=== PATIENT | female | born 1970 ===

== ENCOUNTER 2019-10-19 09:27 | Day surgery (SDC) | payer BC ==
[~2019-10-19 09:27] MED LIST: Lactated Ringers 1,000 ML IV SCH; Lidocaine 2% 5 ML SDV ONE; Midazolam 1 MG/ML 2 ML SDV ONE; Propofol 200 MG/20 ML SDV ONE; Sodium Chloride 0.9% 10 ML SDV IV PRN; Sodium Chloride 0.9% 10 ML Syringe FLUSH PRN; Sodium Chloride 0.9% 2.5 ML Syringe FLUSH PRN; fentaNYL 100 MCG/2 ML SDV ONE
--- NOTE | 2019-10-19 10:23 | PCM.PREANE ---
Preanesthetic Assessment - Anesthesia/Transfusion/Family Hx Anesthesia History: Prior Anesthesia Reaction Type of Anesthesia Reaction: Excessive Nausea/Vomiting Other Type of Anesthesia Reaction Comment: Sick and Dizzy everytime, only time did not pre-treated dramamine/Zantac Transfusion History: No Prior Transfusion(s) - Review of Systems General: No Symptoms Pulmonary: No Symptoms Cardiovascular: No Symptoms Neurological: No Symptoms Other: Reports: None - Physical Assessment NPO Status Date: 10/18/19 Vital Signs: Last Vital Signs Temp 98.6 F 10/19/19 10:07 Pulse 72 10/19/19 10:07 Resp 16 10/19/19 10:07 BP 138/78 10/19/19 10:07 Pulse Ox 97 10/19/19 10:07 Height: 5 ft 10 in Weight: 81.647 kg ASA Class: 2 Dentition: Reports: Normal Dentition (veneers all maxillary teeth) ROM/Head Extension: Full Lungs: Clear to Auscultation, Normal Respiratory Effort Cardiovascular: Regular Rate, Regular Rhythm - Allergies Allergies/Adverse Reactions: Allergies Allergy/AdvReac Type Severity Reaction Status Date / Time codeine Allergy Hyperactivi Verified 10/16/19 11:18 ty latex Allergy Difficulty Verified 10/16/19 11:18 Breathing oxycodone Allergy Nausea and Verified 10/16/19 11:18 Vomiting Penicillins Allergy Cannot Verified 10/16/19 11:18 Remember pineapple Allergy Rash Verified 10/16/19 11:18 povidone-iodine Allergy Swelling Verified 10/16/19 11:18 [From Betadine] soap [From Betadine] Allergy Swelling Verified 10/16/19 11:18 Sulfa (Sulfonamide Allergy Difficulty Verified 10/16/19 11:18 Antibiotics) Breathing tramadol Allergy Vomiting Verified 10/16/19 11:18 Seasonal Allergy Mild Other Uncoded 07/10/18 07:26 - Blood Blood Available: No - Anesthesia Plan Pre-Op Medication Ordered: None - Acknowledgements Anesthesia Type Planned: General Anesthesia Pt an Appropriate Candidate for the Planned Anesthesia: Yes Alternatives and Risks of Anesthesia Discussed w Pt/Guardian: Yes Pt/Guardian Understands and Agrees with Anesthesia Plan: Yes Additional Comments: pmh: gerd, thyroid replacement (asthma is inactive, states pos hep Bwas false positive) PLAN: tiva PreAnesthesia Questionnaire HEENT History: Reports: Other (See Below) Other HEENT History: wears glasses Cardiovascular History: Reports: Other (See Below) Other Cardiovascular History: When younger told "I had a heart murmur" Respiratory History: Reports: Other (See Below) Other Respiratory History: asthma as a child Gastrointestinal History: Reports: None Other Gastrointestinal History: Rare Heartburn Genitourinary History: Reports: None SOLE BUFFER History: Reports: Musculoskeletal History: Reports: Arthritis, Fracture Other Musculoskeletal History: hx: fracturing a finger, arthritis to knees Neurological History: Reports: None Other Neuro History: hx of motion sickness Psychiatric History: Reports: None Endocrine/Metabolic History: Reports: Hypothyroidism Other Endocrine/Metabolic History: hx: THyroidectomy for Cancer Hematologic History: Reports: None Immunologic History: Reports: None Oncologic (Cancer) History: Reports: Thyroid Dermatologic History: Reports: None - Infectious Disease History Infectious Disease History: Reports: Chicken Pox - Past Surgical History HEENT Surgical History: Reports: Myringotomy w Tube(s), Tonsillectomy Other HEENT Surgeries/Procedures: reconstructive ear surgery Female Surgical History: Reports: Endometrial Ablation, Tubal Ligation - SUBSTANCE USE Smoking Status *Q: Never Smoker Recreational Drug Use History: No - HOME MEDS Home Medications: Home Meds Fluticasone Propionate [Flonase] 1 - 2 sprays INH DAILY 12/18/14 [History] Levothyroxine Sodium 125 mg PO DAILY 12/18/14 [History] Loratadine [Claritin] 10 mg PO DAILY PRN 08/13/16 [History] Multivitamin 1 tab PO DAILY 10/16/19 [History] estradioL [Estradiol] 1 mg PO DAILY 10/16/19 [History] - CURRENT (IN HOUSE) MEDS Current Meds: Current Medications Lactated Ringer's (Ringers, Lactated) 1,000 mls @ 125 mls/hr IV ASDIRECTED MELINDA Sodium Chloride (Saline Flush) 10 ml FLUSH ASDIRECTED PRN PRN Reason: Keep Vein Open Sodium Chloride (Saline Flush) 2.5 ml FLUSH ASDIRECTED PRN PRN Reason: Keep Vein Open Sodium Chloride (Saline Flush) 10 ml FLUSH ASDIRECTED PRN PRN Reason: Keep Vein Open Sodium Chloride (Saline Flush) 2.5 ml FLUSH ASDIRECTED PRN PRN Reason: Keep Vein Open Sodium Chloride (Normal Saline) 10 ml IV ASDIRECTED PRN PRN Reason: IV Use Discontinued Medications Fentanyl (Sublimaze) Confirm Administered Dose 100 mcg .ROUTE .STK-MED ONE Stop: 10/19/19 07:02 Lidocaine (Xylocaine-Mpf 2%) Confirm Administered Dose 5 ml .ROUTE .STK-MED ONE Stop: 10/19/19 07:01 Midazolam HCl (Versed 1 Mg/Ml) Confirm Administered Dose 2 mg .ROUTE .STK-MED ONE Stop: 10/19/19 07:02 Propofol (Diprivan 20 Ml) Confirm Administered Dose 400 mg .ROUTE .STK-MED ONE Stop: 10/19/19 07:01
[2019-10-19] MEDS ORDERED: Propofol 200 MG/20 ML SDV ONE (11:07)
--- NOTE | 2019-10-19 11:40 | PCM.POSTAN ---
POST ANESTHESIA ASSESSMENT - MENTAL STATUS Mental Status: Alert - VITAL SIGNS Vital Signs: Last Vital Signs Temp 37.0 C 10/19/19 10:07 Pulse 64 10/19/19 11:35 Resp 10 L 10/19/19 11:35 BP 116/65 10/19/19 11:35 Pulse Ox 99 10/19/19 11:35 - RESPIRATORY Respiratory Status: Respiratory Rate WNL - CARDIOVASCULAR CV Status: Pulse Rate WNL - GASTROINTESTINAL GI Status: No Symptoms - POST OP HYDRATION Hydration Status: Adequate & Stable
--- NOTE | 2019-10-19 11:53 | PCM48HPAN ---
Post Anesthesia Note - EVALUATION WITHIN 48HRS OF ANESTHETIC Vital Signs in Normal Range: Yes Patient Participated in Evaluation: Yes Respiratory Function Stable: Yes Airway Patent: Yes Cardiovascular Function Stable: Yes Hydration Status Stable: Yes Pain Control Satisfactory: Yes Nausea and Vomiting Control Satisfactory: Yes Mental Status Recovered: Yes Vital Signs: Last Vital Signs Temp 98.6 F 10/19/19 10:07 Pulse 64 10/19/19 11:35 Resp 10 L 10/19/19 11:35 BP 116/65 10/19/19 11:35 Pulse Ox 99 10/19/19 11:35
[2019-10-19 13:45] VITALS: BP 120/73; PULSE 60
--- NOTE | 2019-10-19 13:59 | PCM.OPNOTE ---
- General Post-Op/Procedure Note Date of Surgery/Procedure: 10/19/19 Operative Procedure(s): Diagnostic EGD and colonoscopy Findings: Diverticulosis, GERD with esophagitis Pre Op Diagnosis: GERD, change in bowel habits Post-Op Diagnosis: GERD with mild esophagitis, diverticulosis Anesthesia Technique: JOSELINE Primary Surgeon: Migdalia Mclean Condition: Good Free Text/Narrative:: Intake & Output 10/18/19 10/19/19 10/19/19 22:59 06:59 14:59 Intake Total 1550 Balance 1550
--- NOTE | 2019-10-20 14:56 | OR ---
SURGEON: MIGDALIA MCLEAN MD DATE OF PROCEDURE: 10/19/2019 PREOPERATIVE DIAGNOSES: Reflux, change in bowel habits. POSTOPERATIVE DIAGNOSES: Gastroesophageal reflux disease with esophagitis, diverticulosis. PROCEDURE PERFORMED: Diagnostic esophagogastroduodenoscopy and colonoscopy. PRIMARY SURGEON: Endoscopist; Migdalia Mclean MD ANESTHESIA: MAC. INSTRUMENT USED: Olympus endoscope and colonoscope. EXTENT OF EXAM: To the second portion of duodenum, to the cecum. PREPARATION: Good. LIMITATIONS: None. INDICATIONS FOR EXAMINATION: The patient is a 49-year-old female who presents with chronic reflux that is no longer responsive to medications as well as a change in her bowel habits. I explained the need for diagnostic EGD and colonoscopy. I explained the procedure, expected perioperative course, and the risks. She verbalized understanding and wishes to proceed. PROCEDURE IN DETAIL: The patient was brought into the endoscopy suite and placed in the left lateral decubitus position. A time-out was completed verifying the patient's name, age, date of , allergies, and procedure to be performed. Monitored anesthesia care was induced and continuous oxygen was provided via nasal cannula throughout the procedure. A bite block was placed in the patient's mouth. Once adequate anesthesia was achieved, a well-lubricated endoscope was placed in the patient's mouth and advanced under direct visualization to the second portion of duodenum. This appeared normal and a photograph was taken. The scope was then fully withdrawn while examining the color, texture, anatomy, and integrity of the mucosa of the upper GI tract. The duodenum and stomach both appeared normal. Photographs were taken of the pylorus and GE junction. These appeared anatomically normal. There was no evidence of ulceration or inflammation. Biopsies were taken of the gastric antrum, body, and fundus, and sent for histologic review and H pylori testing. The scope was then brought into the distal esophagus. The Z-line appeared normal, but the patient appeared to have some mild esophagitis consistent with GERD. A biopsy was taken of the distal esophageal mucosa. A photograph was taken of the Z-line. The remainder of the esophagus was free of pathology. The scope was removed and this portion of procedure terminated. A digital rectal exam was performed. This exam was within normal limits. A well-lubricated colonoscope was inserted in the rectum and advanced under direct visualization to the level of the cecum. The cecum was identified by both visual and anatomic landmarks. A photograph was taken of the cecal cap. The scope was then fully withdrawn while examining the color, texture, anatomy, and integrity of the mucosa from the cecum to the anal canal. The patient was noted to have diverticulosis within the sigmoid colon. The scope was brought into the rectum and retroflexed to allow visualization of the anal canal opening. This appeared normal and a photograph was taken. The scope was then straightened out and fully withdrawn. The cecum to anus time was greater than 6 minutes. The patient tolerated the procedure well and was transferred to the PACU in stable condition. ENDOSCOPIC DIAGNOSES: Gastroesophageal reflux disease with esophagitis, diverticulosis. RECOMMENDATIONS: Follow up in clinic in 2 weeks. AL LIM /[id number]
== END 2019-10-19 12:25 | disposition home or self-care (01) ==
LOC: MW.SDS 09:27
PROVIDERS: ATTEND Surgery
DX: K57.30 Diverticulosis of large intestine without perforation or abscess without bleeding (principal); K21.0 Gastro-esophageal reflux disease with esophagitis; J45.909 Unspecified asthma, uncomplicated; E89.0 Postprocedural hypothyroidism; Z79.890 Hormone replacement therapy; Z79.51 Long term (current) use of inhaled steroids; Z79.899 Other long term (current) drug therapy; Z90.09 Acquired absence of other part of head and neck; Z88.5 Allergy status to narcotic agent; Z88.6 Allergy status to analgesic agent; Z91.040 Latex allergy status; Z88.0 Allergy status to penicillin; Z88.8 Allergy status to other drugs, medicaments and biological substances; Z88.2 Allergy status to sulfonamides
CPT/HCPCS: 43239; 45378; 88305; 88312; J2001; J2250; J2704; J3010; J7120; 00813